=== PATIENT | male | born 1995 | race Asian ===

== ENCOUNTER 2017-02-18 21:54 | Emergency (ER) | payer SELFPAY ==
[~2017-02-18] VITALS: Ht 165.1 cm; Wt 81.6 kg
[~2017-02-18 21:54] MED LIST: DOXY100T PO; HYDR-971 PO
[2017-02-18 22:46] VITALS: BP 137/64
[2017-02-18] MEDS ORDERED: PRED20TA PO (22:51)
[2017-02-18] MEDS ORDERED: AMOX500C PO (22:51)
--- NOTE | 2017-02-18 22:52 | PHYS DOC ---
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 He denies any fevers, chills or any nausea vomiting. He does state that he has had somewhat of a little productive cough that is occasionally. He states he has not taken anything for the pain and discomfort or for the cough. Review of Systems Review of Systems Constitutional: Denies fever or chills [] Eyes: Denies change in visual acuity, redness, or eye pain [] HENT: nasal congestion and sore throat [] Respiratory: cough or shortness of breath [] Cardiovascular: No additional information not addressed in HPI [] GI: Denies abdominal pain, nausea, vomiting, bloody stools or diarrhea [] : Denies dysuria or hematuria [] Musculoskeletal: Denies back pain or joint pain [] Integument: Denies rash or skin lesions [] Neurologic: Denies headache, focal weakness or sensory changes [] Endocrine: Denies polyuria or polydipsia [] Allergies Allergies Allergies Coded Allergies Type Severity Reaction Last Updated Verified No Known Drug Allergies 04/06/14 No Physical Exam Physical Exam Constitutional: Well developed, well nourished, no acute distress, non-toxic appearance. [] HENT: Normocephalic, atraumatic, bilateral external ears normal, oropharynx moist, no oral exudates, nose normal. Bilateral tympanic membranes appear to be full. No frontal or maxillary sinus tenderness noted. Throat appears to be slightly red with no erythematous no exudate no postnasal drip noted. No anterior cervical adenopathy noted. Eyes: PERRLA, EOMI, conjunctiva normal, no discharge. [] Neck: Normal range of motion, no tenderness, supple, no stridor. [] Cardiovascular:Heart rate regular rhythm, no murmur [] Lungs & Thorax: Bilateral breath sounds clear to auscultation [] Skin: Warm, dry, no erythema, no rash. [] Back: No tenderness Extremities: No tenderness, no cyanosis, no clubbing, ROM intact, no edema. [] Neurologic: Alert and oriented X 3, normal motor function, normal sensory function, no focal deficits noted. [] Psychologic: Affect normal, judgement normal, mood normal. [] EKG EKG [] Radiology/Procedures Radiology/Procedures [] Course & Med Decision Making Course & Med Decision Making Pertinent Labs and Imaging studies reviewed. (See chart for details) Patient will be discharged home with instructions for upper respiratory infection. He'll be provided with a steroid, and amoxicillin. Recommended Mucinex DM [id number]. Patient was also recommended to take Tylenol or ibuprofen for fever chills or generalized body aches and discomfort recommended plenty of fluids. Follow-up primary care physician in the next week. Patient agrees with discharge instructions treatment regimens and follow-up recommendations. All questions and concerns of been answered at the bedside. [] Dragon Disclaimer Dragon Disclaimer This electronic medical record was generated, in whole or in part, using a voice recognition dictation system. Departure Departure Impression: Primary Impression: Upper respiratory infection Disposition: 01 HOME, SELF-CARE Condition: STABLE Referrals: NO PCP (PCP) Patient Instructions: Upper Respiratory Infection, Child, [id number] Additional Instructions: Activity as tolerated. Tylenol or ibuprofen for pain and discomfort. Mucinex DM may be taken as instructed by casket liner [id number]. Amoxicillin and prednisone as prescribed. Follow-up primary care physician next week. Return back to emergency prior signs symptoms of become worse. Scripts Prednisone (PREDNISONE) 20 Mg Tablet 40 MG PO DAILY, #14 TAB Prov: ADRIANA HONG APRN 02/18/17 Amoxicillin (AMOXICILLIN) 500 Mg Capsule 1 CAP PO BID, #20 CAP Prov: ADRIANA HONG APRN 02/18/17 ADRIANA HONG APRN Feb 18, 2017 22:52
== END 2017-02-18 22:55 | disposition home or self-care (01) ==
LOC: ER 21:54
DX: J06.9 Acute upper respiratory infection, unspecified (principal)
CPT/HCPCS: 99283

== ENCOUNTER 2018-11-22 23:07 | Emergency (ER) | payer SELFPAY ==
[~2018-11-22] VITALS: Ht 162.6 cm; Wt 81.6 kg
[~2018-11-22 23:07] MED LIST changes: +AMOX500C PO; +HYDR-3164 PO; -HYDR-971 PO; +PRED20TA PO
[2018-11-22 23:20] VITALS: BP 144/84
[2018-11-22] MEDS ORDERED: NAPR-695 PO (23:42)
[2018-11-22] MEDS ORDERED: ORPH100T PO (23:42)
[2018-11-22] MEDS ORDERED: PRED20TA PO (23:42)
--- NOTE | 2018-11-22 23:42 | PHYS DOC ---
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 Alcohol Use: Occasionally Drug Use: None Adult General Chief Complaint Chief Complaint: Neck Pain HPI HPI Patient is a 23 year old [f__sex] who presents with [] Review of Systems Review of Systems Constitutional: Denies fever or chills [] Eyes: Denies change in visual acuity, redness, or eye pain [] HENT: Denies nasal congestion or sore throat [] Respiratory: Denies cough or shortness of breath [] Cardiovascular: No additional information not addressed in HPI [] GI: Denies abdominal pain, nausea, vomiting, bloody stools or diarrhea [] : Denies dysuria or hematuria [] Musculoskeletal: Denies back pain or joint pain [] Integument: Denies rash or skin lesions [] Neurologic: Denies headache, focal weakness or sensory changes [] Endocrine: Denies polyuria or polydipsia [] All other systems were reviewed and found to be within normal limits, except as documented in this note. Allergies Allergies Allergies Coded Allergies Type Severity Reaction Last Updated Verified No Known Drug Allergies 04/06/14 No Physical Exam Physical Exam Constitutional: Well developed, well nourished, no acute distress, non-toxic appearance. [] HENT: Normocephalic, atraumatic, bilateral external ears normal, oropharynx moist, no oral exudates, nose normal. [] Eyes: PERRLA, EOMI, conjunctiva normal, no discharge. [] Neck: Normal range of motion, no tenderness, supple, no stridor. [] Cardiovascular:Heart rate regular rhythm, no murmur [] Lungs & Thorax: Bilateral breath sounds clear to auscultation [] Abdomen: Bowel sounds normal, soft, no tenderness, no masses, no pulsatile masses. [] Skin: Warm, dry, no erythema, no rash. [] Back: No tenderness, no CVA tenderness. [] Extremities: No tenderness, no cyanosis, no clubbing, ROM intact, no edema. [] Neurologic: Alert and oriented X 3, normal motor function, normal sensory function, no focal deficits noted. [] Psychologic: Affect normal, judgement normal, mood normal. [] EKG EKG [] Radiology/Procedures Radiology/Procedures [] Course & Med Decision Making Course & Med Decision Making Pertinent Labs and Imaging studies reviewed. (See chart for details) [] Dragon Disclaimer Dragon Disclaimer This electronic medical record was generated, in whole or in part, using a voice recognition dictation system. Departure Departure Impression: Primary Impression: Neck pain Additional Impression: Back pain Disposition: 01 HOME, SELF-CARE Condition: STABLE Referrals: NO PCP (PCP) PHAN JOSEPH MD Patient Instructions: Back Pain, Adult, [id number], Chronic Pain Scripts Prednisone (PREDNISONE) 20 Mg Tablet 2 TAB PO DAILY, #8 TAB Start this medication tomorrow 11/23/18 Prov: MICHAEL WELLER DO 11/22/18 Orphenadrine Citrate (ORPHENADRINE CITRATE) 100 Mg Tablet.er 100 MG PO BID PRN for MUSCLE PAIN, #14 Prov: MICHAEL WELELR DO 11/22/18 Naproxen (NAPROXEN) 375 Mg Tablet 1 TAB PO TID PRN PRN for PAIN, #30 TAB Prov: MICHAEL WELLER DO 11/22/18 Problem Qualifiers Additional Impression: Back pain Back pain location: low back pain Chronicity: chronic Back pain laterality: bilateral Sciatica presence: without sciatica Qualified Code s: M54.5 - Low back pain; G89.29 - Other chronic pain MICHAEL WELLER DO November 22, 2018 23:42
[2018-11-22] MEDS ORDERED: DEXAMETHASONE 4 MG TABLET PO ONE (23:45)
[2018-11-22] MEDS ORDERED: KETOROLAC 30 MG/ML VIAL. IM ONE (23:45)
== END 2018-11-23 00:04 | disposition home or self-care (01) ==
LOC: ER 23:07
DX: M54.2 Cervicalgia (principal); M54.5 Low back pain; G89.29 Other chronic pain
CPT/HCPCS: 96372; 99283; J1885; J8540

== ENCOUNTER 2018-12-22 23:40 | Emergency (ER) | payer SELFPAY ==
[~2018-12-22] VITALS: Ht 167.6 cm; Wt 81.6 kg
[~2018-12-22 23:40] MED LIST changes: +NAPR-695 PO; +ORPH100T PO
[2018-12-22 23:50] VITALS: BP 126/87
[2018-12-23] MEDS ORDERED: KETOROLAC 30 MG/ML VIAL. IM ONE (00:45)
[2018-12-23] MEDS ORDERED: DEXAMETHASONE 4 MG TABLET PO ONE (00:45)
[2018-12-23] MEDS ORDERED: IBUPROFEN 200 MG TABLET. PO ONE (01:00)
[2018-12-23 01:10] LABS: MONONUCLEOSIS PATIENT NEGATIVE (NEGATIVE)
[2018-12-23] MEDS ORDERED: PRED20TA PO (01:56)
--- NOTE | 2018-12-23 01:56 | PHYS DOC ---
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 Alcohol Use: Occasionally Drug Use: None Adult General Chief Complaint Chief Complaint: GENERALIZED BODY ACHES HPI HPI Patient is a 23 year old [f__sex] who presents with [] Review of Systems Review of Systems Constitutional: Denies fever or chills [] Eyes: Denies change in visual acuity, redness, or eye pain [] HENT: Denies nasal congestion or sore throat [] Respiratory: Denies cough or shortness of breath [] Cardiovascular: No additional information not addressed in HPI [] GI: Denies abdominal pain, nausea, vomiting, bloody stools or diarrhea [] : Denies dysuria or hematuria [] Musculoskeletal: Denies back pain or joint pain [] Integument: Denies rash or skin lesions [] Neurologic: Denies headache, focal weakness or sensory changes [] Endocrine: Denies polyuria or polydipsia [] All other systems were reviewed and found to be within normal limits, except as documented in this note. Current Medications Current Medications Current Medications Medications (Trade) Dose Ordered Sig/Analisa Start Time Stop Time Status Last Admin Dose Admin Dexamethasone (Decadron) 10 mg 1X ONCE 12/23/18 00:45 12/23/18 00:46 DC 12/23/18 01:10 10 MG Ibuprofen (Motrin) 600 mg 1X ONCE 12/23/18 01:00 12/23/18 01:04 DC 12/23/18 01:10 600 MG Ketorolac Tromethamine (Toradol 30mg Vial) 30 mg 1X ONCE 12/23/18 00:45 12/23/18 00:45 DC Allergies Allergies Allergies Coded Allergies Type Severity Reaction Last Updated Verified No Known Drug Allergies 04/06/14 No Physical Exam Physical Exam Constitutional: Well developed, well nourished, no acute distress, non-toxic appearance. [] HENT: Normocephalic, atraumatic, bilateral external ears normal, oropharynx moist, no oral exudates, nose normal. [] Eyes: PERRLA, EOMI, conjunctiva normal, no discharge. [] Neck: Normal range of motion, no tenderness, supple, no stridor. [] Cardiovascular:Heart rate regular rhythm, no murmur [] Lungs & Thorax: Bilateral breath sounds clear to auscultation [] Abdomen: Bowel sounds normal, soft, no tenderness, no masses, no pulsatile masses. [] Skin: Warm, dry, no erythema, no rash. [] Back: No tenderness, no CVA tenderness. [] Extremities: No tenderness, no cyanosis, no clubbing, ROM intact, no edema. [] Neurologic: Alert and oriented X 3, normal motor function, normal sensory function, no focal deficits noted. [] Psychologic: Affect normal, judgement normal, mood normal. [] Current Patient Data Vital Signs Vital Signs Date Time Temp Pulse Resp B/P (MAP) Pulse Ox O2 Delivery O2 Flow Rate FiO2 12/22/18 23:50 100.1 95 22 126/87 (100) 98 Room Air 100.1 Lab Values Laboratory Tests Test 12/23/18 00:55 Heterophil Agglutinins Negative (NEGATIVE) EKG EKG [] Radiology/Procedures Radiology/Procedures [] Course & Med Decision Making Course & Med Decision Making Pertinent Labs and Imaging studies reviewed. (See chart for details) [] Dragon Disclaimer Dragon Disclaimer This electronic medical record was generated, in whole or in part, using a voice recognition dictation system. Departure Departure Impression: Primary Impression: Upper respiratory infection Disposition: HOME, SELF-CARE Condition: STABLE Referrals: NO PCP (PCP) Patient Instructions: Upper Respiratory Infection, Adult, [id number] Scripts Prednisone (PREDNISONE) 20 Mg Tablet 2 TAB PO DAILY, #8 TAB Prov: MICHAEL WELLER DO 12/23/18 Problem Qualifiers Primary Impression: Upper respiratory infection URI type: unspecified URI Qualified Codes: J06.9 - Acute upper respiratory infection, unspecified MICHAEL WELLER DO Dec 23, 2018 01:56
== END 2018-12-23 02:06 | disposition home or self-care (01) ==
LOC: ER 23:40
DX: J06.9 Acute upper respiratory infection, unspecified (principal)
CPT/HCPCS: 86308; 87070; 87880; 99284; J8540; 99283

== ENCOUNTER 2019-08-13 10:37 | Emergency (ER) | payer SELFPAY ==
[~2019-08-13] VITALS: Ht 167.6 cm; Wt 68.1 kg
[2019-08-13 11:22] VITALS: BP 134/73
[2019-08-13] MEDS ORDERED: SULF1TAB24 PO (12:11)
[2019-08-13] MEDS ORDERED: CEPH500C PO (12:11)
--- NOTE | 2019-08-13 12:11 | PHYS DOC ---
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 Patient states the symptoms began 3 days ago. He denies any fever, cough, shortness of breath, wheezing, nausea, vomiting, diarrhea, abdominal pain, numbness, tingling, or weakness. He denies any known injury to the area. He currently rates his pain a 4 out of 10 on the pain scale, the pain increases with palpation, he denies any alleviating factors. All other ROS is neg unless otherwise noted in HPI. Review of Systems Review of Systems sEE aBOVE Allergies Allergies Allergies Coded Allergies Type Severity Reaction Last Updated Verified No Known Drug Allergies 04/06/14 No Physical Exam Physical Exam See Above Constitutional: Well developed, well nourished, no acute distress, non-toxic appearance. [] HENT: Normocephalic, atraumatic, bilateral external ears normal, nose normal. [] Eyes: PERRLA, EOMI, conjunctiva normal, no discharge. [] Neck: Normal range of motion, No stridor. [] Cardiovascular:Heart rate regular rhythm, no murmur [] Lungs & Thorax: Bilateral breath sounds clear to auscultation, Respirations even and unlabored, no retractions, no respiratory distress; [] Skin: Warm, dry, no erythema, no rash; 3 cm diameter warm, red, tender, non- fluctuant area just distal to right axilla, consistent with abscess and cellulitis Back: No tenderness, Extremities: No tenderness, ROM intact, no edema. [] Neurologic: Alert and oriented X 3, no focal deficits noted. [] Psychologic: Affect normal, judgement normal, mood normal. [] Current Patient Data Vital Signs Vital Signs Date Time Temp Pulse Resp B/P (MAP) Pulse Ox O2 Delivery O2 Flow Rate FiO2 08/13/19 11:22 97.9 79 16 134/73 (93) 99 Room Air 97.9 EKG EKG [] Radiology/Procedures Radiology/Procedures [] Course & Med Decision Making Course & Med Decision Making Pertinent Labs and Imaging studies reviewed. (See chart for details) 24-year-old male presented to the emergency department with complaints of a sore under his right axilla for 3 days that drained bloody pus. The area continues to be red, and tender. He denies any drainage or fever. Most likely a drained abscess with continued cellulitis, will treat with Bactrim and Keflex. Patient encouraged take Tylenol and ibuprofen as needed. Also we'll prescribe mupirocin to apply to area 3 times a day. Follow-up with primary care doctor in 1-2 days. Return to ER symptoms worsen. Patient verbalized an understanding of home care, medications, follow-up, and return to ED instructions and was in agreement with the plan of care. [] Dragon Disclaimer Dragon Disclaimer This electronic medical record was generated, in whole or in part, using a voice recognition dictation system. Departure Departure Impression: Primary Impression: Cutaneous abscess of chest wall Additional Impression: Abscess or cellulitis of chest wall Disposition: 01 HOME, SELF-CARE Condition: STABLE Referrals: NO PCP (PCP) Patient Instructions: Abscess, [id number], Cellulitis, [id number] Additional Instructions: Fill the prescription(s) and use as directed. You may take tylenol or ibuprofen as needed for pain. Leave the Dressing that was placed in the ER in place for the next 24 hours, then change the dressing twice daily and apply antibiotic ointment as needed. You may apply warm, moist packs to the area to help decrease discomfort. Follow up with your primary care doctor or return to the ER in 48 hours to have site rechecked. Return to the ER sooner if your symptoms worsen. Scripts Mupirocin (MUPIROCIN OINTMENT) 22 Gm Oint...g. 1 MARY TP TID for WOUND CARE for 7 Days, #1 TUBE 0 Refills Prov: JENNIFER FAIR BANDSAW OPERATOR 08/13/19 Sulfamethoxazole/Trimethoprim (BACTRIM DS TABLET) 1 Each Tablet 1 TAB PO BID for 10 Days, #20 TAB 0 Refills Prov: JENNIFER FAIR APRN 08/13/19 Cephalexin (CEPHALEXIN) 500 Mg Capsule 1 CAP PO QID for 7 Days, #28 CAP 0 Refills Prov: JENNIFER FAIR APRN 08/13/19 Problem Qualifiers JENNIFER FAIR APRN Aug 13, 2019 12:11
[2019-08-13] MEDS ORDERED: MUPI22OI2 TP (12:13)
[2019-08-13] MEDS ORDERED: NEOMY/BACITR/POLYMYXIN OINT PACKET. TP ONE (12:15)
== END 2019-08-13 12:21 | disposition home or self-care (01) ==
LOC: ER 10:37
DX: L02.213 Cutaneous abscess of chest wall (principal); L03.313 Cellulitis of chest wall; F17.200 Nicotine dependence, unspecified, uncomplicated; Z98.890 Other specified postprocedural states
CPT/HCPCS: 99283